=== PATIENT | male | born 1940 | race Two or more races ===

== ENCOUNTER 2018-06-25 12:48 | Emergency (ER) | payer OTHER ==
[~2018-06-25] VITALS: Ht 170.2 cm; Wt 73.9 kg
[2018-06-25] MEDS ORDERED: XTANDI40 MG (13:05)
[2018-06-25] MEDS ORDERED: TAMS0.4C (13:05)
[2018-06-25] MEDS ORDERED: AMIODARONE HCL200 MG (13:06)
[2018-06-25] MEDS ORDERED: CASODEX50 MG (13:06)
[2018-06-25] MEDS ORDERED: METOPROLOL SUCC50 MG (13:06)
[2018-06-25] MEDS ORDERED: ATORVASTATIN CA10 MG (13:07)
[2018-06-25] MEDS ORDERED: PROSCAR5 MG (13:08)
[2018-06-25] MEDS ORDERED: ASPIR 8181 MG (13:08)
[2018-06-25] MEDS ORDERED: OSTERA TABLET1 EACH (13:09)
[2018-06-25] MEDS ORDERED: XGEVA120 MG/1.7 (13:10)
== END 2018-06-25 18:18 | disposition home or self-care (01) ==
LOC: ER 12:48
DX: M54.5 Low back pain (principal); R35.8 Other polyuria; C41.2 Malignant neoplasm of vertebral column; C61 Malignant neoplasm of prostate

== ENCOUNTER 2018-09-05 11:35 | Emergency (ER) | payer OTHER ==
[~2018-09-05] VITALS: Ht 160 cm; Wt 71.2 kg
[~2018-09-05 11:35] MED LIST: AMIODARONE HCL200 MG; ASPIR 8181 MG; ATORVASTATIN CA10 MG; CASODEX50 MG; METOPROLOL SUCC50 MG; OSTERA TABLET1 EACH; PROSCAR5 MG; TAMS0.4C; XGEVA120 MG/1.7; XTANDI40 MG
== END 2018-09-06 08:55 | disposition home or self-care (01) ==
LOC: ER 11:35
DX: K29.00 Acute gastritis without bleeding (principal); E87.1 Hypo-osmolality and hyponatremia; E86.0 Dehydration; C61 Malignant neoplasm of prostate; D63.0 Anemia in neoplastic disease; C79.51 Secondary malignant neoplasm of bone; R63.0 Anorexia; R19.7 Diarrhea, unspecified; R35.8 Other polyuria; Z92.3 Personal history of irradiation

== ENCOUNTER 2018-09-07 04:58 | Emergency (ER) | payer OTHER ==
[~2018-09-07] VITALS: Ht 160 cm; Wt 71.2 kg
== END 2018-09-07 16:34 | disposition home or self-care (01) ==
LOC: ER 04:58
DX: E86.0 Dehydration (principal); R53.1 Weakness; R53.83 Other fatigue

== ENCOUNTER 2018-09-10 08:26 | Inpatient (IN) | payer OTHER ==
[~2018-09-10] VITALS: Ht 160 cm; Wt 71.2 kg
--- NOTE | 2018-09-10 09:13 | NUR ---
PACIENTE AL MOMENTO ESTABLE, SIGNOS VITALES ESTABLES, ALERTA Y ORIENTADO X3 REFIERE VERTIGO MELISSA, AL MOMENTO SE CONTINUA MONITOREANDO POR CAMBIOS.
--- NOTE | 2018-09-10 10:10 | NUR ---
SE ORIENTA A PTE SOBRE PROCESO DE VENOPUNCION, GUNJAN DE MUESTRAS, ADMINISTRACION DE MEDICAMENOS Y ESTUDIOD A REALIZAR PTE REFIERE ENTENDER INF NILDA.
--- NOTE | 2018-09-10 15:23 | NUR ---
PT ALERTA Y ORIENTADO X3 ESFERAS EN COMPANIA DE FAMILIAR. EN TEJA CON BARANDAS ELEVADAS Y FRENOS COLOCADOS EN TEJA CON BARANDAS ELEVADAS Y FRENOS COLOCADOS.PENDIENTE RECIVIR VISITA DE MEDICOS INTERNISTAS.
[2018-09-13] MEDS ORDERED: FAMOTIDINE20 MG PO (09:19)
[2018-09-13] MEDS ORDERED: TRAM1TAB98 PO (09:21)
[2018-09-13] MEDS ORDERED: ZOLOFT25 MG PO (09:22)
== END 2018-09-13 10:20 | disposition home or self-care (01) | DRG 723 ==
LOC: ER 08:26 → SEC-K 18:05 → MEDJ 18:05 → MEDI 20:10 → MEDJ 20:40
PROVIDERS: ADMIT Internal Medicine Hematology & Oncology
PROC: BH4CZZZ Ultrasonography of Head and Neck (ICD-10-PCS; 2018-09-10)
PROC: 30233N1 Transfusion of Nonautologous Red Blood Cells into Peripheral Vein, Percutaneous Approach (ICD-10-PCS; principal; 2018-09-11)
DX: C61 Malignant neoplasm of prostate (principal); C79.51 Secondary malignant neoplasm of bone; E87.1 Hypo-osmolality and hyponatremia; E27.1 Primary adrenocortical insufficiency; D63.0 Anemia in neoplastic disease; E86.0 Dehydration; R53.81 Other malaise; R63.0 Anorexia; Z92.3 Personal history of irradiation